=== PATIENT | male | born 1980 | race Caucasian/White ===

== ENCOUNTER 2021-08-12 11:44 | Emergency (ER) | payer OTHER ==
[~2021-08-12] VITALS: Ht 180.3 cm; Wt 122.5 kg
== END 2021-08-12 13:00 | disposition home or self-care (01) ==
LOC: FER 11:44
DX: F41.0 Panic disorder [episodic paroxysmal anxiety] (principal); I10 Essential (primary) hypertension; Z28.310 Unvaccinated for COVID-19
CPT/HCPCS: 93005